=== PATIENT | female | born 1935 | race Caucasian/White ===

== ENCOUNTER → 2021-01-12 11:53 | Outpatient (CLI) | payer MEDICARE, SELFPAY ==
[2021-01-12 19:21] LABS: HEMOLYSIS < 15 (0-50); Iron 68 ug/dL (37-170)
[2021-01-12 19:31] LABS: Alanine Aminotransferase 19 IU/L (<35); Albumin 3.8 g/dL (3.5-5.0); Albumin Globulin Ratio 1.4 (1.0-2.8); Alkaline Phosphatase 71 U/L (38-126); Aspartate Aminotransferase 30 IU/L (14-36); BUN Creatinine Ratio 22.4 (6-22); Bilirubin Total 0.5 mg/dL (0.2-1.3); Blood Urea Nitrogen 24 mg/dL (7-17); Calcium 9.9 mg/dL (8.4-10.2); Carbon Dioxide 26 mmol/L (22-32); Chloride 103 mmol/L (98-107); Estimated Glomerular Filt Rate 48.6 mL/min (>60); Globulin 2.8 g/dL (1.7-4.1); Glucose 93 mg/dL (80-110); HEMOLYSIS < 15 (0-50); Potassium 4.6 mmol/L (3.4-5.1); Sodium 136 mmol/L (137-145); Total Protein 6.6 g/dL (6.3-8.2)
[2021-01-12 19:33] LABS: Percent Iron Saturation 24 % (15-50); Total Iron Binding Capacity 286 ug/dL (265-497); Transferrin 247 mg/dL (206-381)
[2021-01-12 19:39] LABS: Add Manual Diff / Slide Review NO; Basophils Absolute Auto 100 /uL (0-100); Basophils Percent Auto 2.2 % (0-2); Eosinophils Absolute Auto 300 /uL (0-450); Eosinophils Percent Auto 5.7 % (2-4); Hematocrit 34.9 % (36-46); Hemoglobin 11.5 g/dL (12.0-16.0); Lymphocytes Absolute Auto 800 /uL (1100-4500); Lymphocytes Percent Auto 13.7 % (25-40); Mean Corpuscular HGB Conc 32.9 % (30-36); Mean Corpuscular Hemoglobin 29.4 PG (26-34); Mean Corpuscular Volume 89.4 fL (80-100); Monocytes Absolute Auto 700 /uL (0-900); Monocytes Percent Auto 13.5 % (3-14); Neutrophils Absolute Auto 3600 /uL (1500-7000); Neutrophils Percent Auto 64.9 % (50-75); Platelet Count 249 X10^3/uL (150-400); Red Cell Distribution Width 19.2 % (11.6-14.8); White Blood Cell Count 5.5 X10^3/uL (4.5-11.0)
[2021-01-12 19:54] LABS: TSH w/ Reflex to FT4 4.08 uIU/mL (0.47-4.68)
[2021-01-12 19:58] LABS: Reticulocyte Count, Percent 1.3 % (1.06-2.63)
[2021-01-12 20:04] LABS: Ferritin 29 ng/mL (11-264)
[2021-01-12 20:34] LABS: Folate > 20.0 ng/mL (2.76-20.0); Vitamin B12 584 pg/mL (239-931)
== END ==
PROVIDERS: Family Provider Family Medicine; PCP Family Medicine; Referring Provider Family Medicine; Visit Provider Family Medicine
DX: D64.9 Anemia, unspecified (principal); E03.9 Hypothyroidism, unspecified; N18.9 Chronic kidney disease, unspecified; I10 Essential (primary) hypertension
CPT/HCPCS: 80053; 82607; 82728; 82746; 83540; 83550; 84443; 85025; 85045

== ENCOUNTER → 2021-01-24 12:13 | Outpatient (CLI) | payer MEDICARE, SELFPAY ==
[2021-01-24 19:35] LABS: Add Manual Diff / Slide Review NO; Basophils Absolute Auto 100 /uL (0-100); Basophils Percent Auto 1.2 % (0-2); Eosinophils Absolute Auto 200 /uL (0-450); Eosinophils Percent Auto 3.2 % (2-4); Hematocrit 38.3 % (36-46); Hemoglobin 12.2 g/dL (12.0-16.0); Lymphocytes Absolute Auto 800 /uL (1100-4500); Lymphocytes Percent Auto 11.1 % (25-40); Mean Corpuscular HGB Conc 31.9 % (30-36); Mean Corpuscular Hemoglobin 28.9 PG (26-34); Mean Corpuscular Volume 90.4 fL (80-100); Monocytes Absolute Auto 800 /uL (0-900); Monocytes Percent Auto 10.3 % (3-14); Neutrophils Absolute Auto 5600 /uL (1500-7000); Neutrophils Percent Auto 74.2 % (50-75); Platelet Count 316 X10^3/uL (150-400); Red Blood Cell Count 4.23 X10^6/uL (4.0-5.2); Red Cell Distribution Width 18.9 % (11.6-14.8); White Blood Cell Count 7.6 X10^3/uL (4.5-11.0)
[2021-01-24 19:45] LABS: Alanine Aminotransferase 36 IU/L (<35); Albumin Globulin Ratio 1.5 (1.0-2.8); Alkaline Phosphatase 71 U/L (38-126); Aspartate Aminotransferase 41 IU/L (14-36); BUN Creatinine Ratio 20.5 (6-22); Bilirubin Total 0.4 mg/dL (0.2-1.3); Blood Urea Nitrogen 23 mg/dL (7-17); Calcium 9.9 mg/dL (8.4-10.2); Carbon Dioxide 29 mmol/L (22-32); Chloride 102 mmol/L (98-107); Estimated Glomerular Filt Rate 46.1 mL/min (>60); Globulin 2.7 g/dL (1.7-4.1); Glucose 92 mg/dL (80-110); HEMOLYSIS < 15 (0-50); Potassium 5.1 mmol/L (3.4-5.1); Sodium 135 mmol/L (137-145); Total Protein 6.7 g/dL (6.3-8.2)
== END ==
PROVIDERS: Family Provider Family Medicine; PCP Family Medicine; Referring Provider Physician Assistant; Visit Provider Physician Assistant
DX: D64.9 Anemia, unspecified (principal); E03.9 Hypothyroidism, unspecified; Z86.73 Personal history of transient ischemic attack (TIA), and cerebral infarction without residual deficits
CPT/HCPCS: 80053; 85018; 85025

== ENCOUNTER → 2021-06-27 10:24 | Outpatient (CLI) | payer MEDICARE, SELFPAY ==
[2021-06-27 20:02] LABS: Add Manual Diff / Slide Review NO; Basophils Absolute Auto 100 /uL (0-100); Basophils Percent Auto 1.3 % (0-2); Eosinophils Absolute Auto 400 /uL (0-450); Hematocrit 29.6 % (36-46); Hemoglobin 9.4 g/dL (12.0-16.0); Lymphocytes Absolute Auto 500 /uL (1100-4500); Lymphocytes Percent Auto 9.6 % (25-40); Mean Corpuscular HGB Conc 31.8 % (30-36); Mean Corpuscular Hemoglobin 29.7 PG (26-34); Mean Corpuscular Volume 93.3 fL (80-100); Monocytes Absolute Auto 700 /uL (0-900); Monocytes Percent Auto 12.9 % (3-14); Neutrophils Absolute Auto 4000 /uL (1500-7000); Neutrophils Percent Auto 69.2 % (50-75); Platelet Count 337 X10^3/uL (150-400); Red Blood Cell Count 3.17 X10^6/uL (4.0-5.2); Red Cell Distribution Width 20.1 % (11.6-14.8); White Blood Cell Count 5.7 X10^3/uL (4.5-11.0)
[2021-06-27 20:31] LABS: Anisocytosis 2+
--- NOTE | 2021-06-28 17:56 | CM.SWNOTE ---
PEST CONTROL OPERATOR Note: Received community call from [facility] by Dr. Rincon ph# [phone]. PEST CONTROL OPERATOR returned call to Dr. Rincon at approximately 11:00AM today. Provider reports that this 86yr old female was discharged from [facility] about 1 week ago after GI bleed. Prior to GI bleed patient underwent hip repair at [facility]. PEST CONTROL OPERATOR unable to access records from [facility] or [facility]. Provider and ASSISTANT BOYS TRACK COACH/Liz requesting assistance with placement of this patient that continues to need rehabilitation for hip repair and cannot manage at home. Per provider patient previously at [facility]? PEST CONTROL OPERATOR left vm with admit at [facility] to obtain more information? After not receiving call back from [facility] placed call to Marleni at [facility] to review for possible rehab admit from outpatient clinic. Patient has met Medicare requirement and should not need to be hospitalized to go to SNF for rehab. Inpatient acute care PEST CONTROL OPERATOR/Elsie Morris agreed to assist office with SNF placement. Spoke with Marleni at [facility] after she reviewed chart in [facility]. November in agreement to discuss with Dr. Rincon office and accept tomorrow if all arrangements and paperwork can be completed. Spoke again this afternoon with ASSISTANT BOYS TRACK COACH/Liz at clinic on [address], she confirms that all paperwork completed and patient tested today for COVID. Current plan is for patient to be brought over from [facility] tomorrow by family/friends to be admitted to [facility] for continued rehab. P: [facility] on 06-29-21. Approximately 60 minutes spent on coordination of d/c plan from clinic to SNF. SCOTT Watt
== END ==
PROVIDERS: Family Provider Family Medicine; PCP Family Medicine; Referring Provider Physician Assistant; Visit Provider Physician Assistant
DX: D50.9 Iron deficiency anemia, unspecified (principal); K92.2 Gastrointestinal hemorrhage, unspecified
CPT/HCPCS: 85025

== ENCOUNTER → 2021-07-12 14:58 | Outpatient (CLI) | payer MEDICARE, OTHER, SELFPAY ==
--- NOTE | 2021-07-12 | DI.RAD.S_ITS ---
PROCEDURE: XR HIP W PEL IF DONE LT 2V INDICATIONS: Left hip replacement. TECHNIQUE: AP pelvis and lateral view of the left hip acquired. COMPARISON: [facility] ([facility] CR, XR HIP W PEL IF DONE LT 2V, 06/26/2021, 15:12. FINDINGS: Bones: There is left hip arthroplasty, with prosthesis components in expected positions. Healing or healed superior and inferior pubic remote fractures are noted. 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 Soft tissues: Overlying postoperative changes are noted. Vascular densities consistent with atherosclerosis. IMPRESSION: 1. Left hip arthroplasty in expected position. 2. Healing or healed left obturator ring fractures. Dictated by: Stephane Dove M.D. on 07/13/2021 at 7:53 Approved by: Stephane Dove M.D. on 07/13/2021 at 7:56
== END ==
PROVIDERS: Family Provider Family Medicine; PCP Family Medicine; Referring Provider Orthopaedic Surgery Orthopaedic Trauma; Visit Provider Orthopaedic Surgery Orthopaedic Trauma
DX: M16.11 Unilateral primary osteoarthritis, right hip (principal); M46.1 Sacroiliitis, not elsewhere classified; Z96.642 Presence of left artificial hip joint
CPT/HCPCS: 73502

== ENCOUNTER 2021-07-24 12:02 | Emergency (ER) | payer MEDICARE, OTHER, SELFPAY ==
[2021-07-24] VITALS (51 sets, daily range): BP systolic 138–187; BP diastolic 55–79; PULSE 57–79; RESP 12–33; TEMP 36.2–36.6; O2SAT 92–100; BMI 20.3
--- NOTE | 2021-07-24 12:44 | ED.NAVMDI ---
HPI - Nausea/Vomiting/Diarrhea <Gustavo Nickerson DO - Last Filed: 07/25/21 07:03> General Chief complaint: Nausea/Vomiting/Diarrhea Stated complaint: Failure to thrive Time Seen by Provider: 07/24/21 12:22 Source: patient and EMS Mode of arrival: EMS Limitations: altered mental status History of Present Illness HPI Narrative: 86-year-old female. Does have a PLOST form at bedside which does state DNR with limited interventions. Sent by her living facility by EMS for evaluation of failure to thrive and COVID positive and potential GI bleed. Patient has had GI bleed in the past. Per report she is tested positive for COVID within the past 5 days. Patient states that she knows she is in the hospital but is obviously confused about why she is here. She has no reported symptoms. She thinks that she did not have any diarrhea earlier today however per EMS report she apparently had a bowel movement in the nursing facility just prior to their involvement in the case. Related Data Previous Rx's Medication Instructions Recorded lisinopril 20 mg tablet 20 mg PO QAM #90 tab 03/06/16 amlodipine 5 mg tablet (Norvasc) 5 mg PO QDAY #90 tab 03/07/16 levothyroxine 88 mcg tablet 88 mcg PO QAM #90 tab 11/27/16 spironolactone 25 mg tablet 25 mg PO QAM #30 tab 01/07/17 atorvastatin 20 mg tablet (Lipitor) 20 mg PO HS #90 tab 12/20/20 clopidogrel 75 mg tablet 75 mg PO DAILY #30 tab 04/25/21 sertraline 50 mg tablet 75 mg PO QDAY #90 tab 05/19/21 carvedilol 6.25 mg tablet (Coreg) 6.25 mg PO BID #120 tab 06/21/21 Allergies Allergy/AdvReac Type Severity Reaction Status Date / Time No Known Drug Allergies Allergy Verified 07/24/21 12:38 Review of Systems <DO Veronica Lala Last Filed: 07/25/21 07:03> Review of Systems Narrative: Potentially limited given her altered mental status Constitutional Constitutional: Denies headache(s) ENT Ears, Nose, Mouth, and Throat: Denies headache(s) Cardiovascular Cardiovascular: Denies chest pain and Denies dyspnea Respiratory Respiratory: Denies cough and Denies dyspnea Gastrointestinal Gastrointestinal: Denies abdominal pain and Denies change in bowel habits Neurologic Neurologic: Denies headache(s) Hematologic/Lymphatic On Anticoagulants: No Patient History <DO Veronica Lala Last Filed: 07/25/21 07:03> Medical History (Updated 07/25/21 @ 01:19 by Cy Lopez DO) Anemia Essential hypertension (11/21/15) Failure to thrive Hx of completed stroke Ischemic dilated cardiomyopathy Social History Smoking Status: Former smoker Smoking Status: Former smoker Substance Use Type: does not use Exam <DO Veronica Lala Last Filed: 07/25/21 07:03> Initial Vital Signs Initial Vital Signs: Vital Signs Temperature 97.2 F L 07/24/21 12:05 Pulse Rate 57 L 07/24/21 12:05 Respiratory Rate 12 07/24/21 12:05 Blood Pressure 147/67 H 07/24/21 12:05 Pulse Oximetry 100 07/24/21 12:05 HENMT Head: normal to inspection and normocephalic Resp Effort & Inspection: normal respiratory effort Cardio Rate: regular rate GI Inspection: normal to inspection Palpation: soft and No tender Skin General: no rashes or lesions noted Neuro General: patient alert, patient awake and moves all extremities Extrem General: normal to inspection and capillary refill normal Psych Appearance: grossly normal and well kempt <Cy Lopez DO - Last Filed: 07/25/21 02:55> Initial Vital Signs Initial Vital Signs: Vital Signs Temperature 97.2 F L 07/24/21 12:05 Pulse Rate 57 L 07/24/21 12:05 Respiratory Rate 12 07/24/21 12:05 Blood Pressure 147/67 H 07/24/21 12:05 Pulse Oximetry 100 07/24/21 12:05 Scores <DO Veronica Lala Last Filed: 07/25/21 07:03> GCS [place] coma scale eye opening: Spontaneous [place] coma scale verbal response: Confused [place] coma scale motor response: Obey commands Anayeli coma scale total score: 14 <DO Veronica Meléndez Last Filed: 07/25/21 02:55> GCS [place] coma scale total score: 14 Course <DO Veronica Lala Last Filed: 07/25/21 07:03> Orders Ordered: ED Orders 07/25/21 00:20 Hemoglobin and Hematocrit Stat Vital Signs Vital signs: Vital Signs - 8 hr 07/24/21 23:15 07/24/21 23:30 07/24/21 23:45 Pulse Rate 62 63 62 Respiratory Rate 22 20 23 Blood Pressure Pulse Oximetry 99 97 98 07/24/21 23:49 07/25/21 00:00 07/25/21 00:15 Pulse Rate 62 62 88 Respiratory Rate 31 H 25 H 28 H Blood Pressure 180/75 H Pulse Oximetry 98 97 97 07/25/21 00:30 07/25/21 00:45 07/25/21 01:00 Pulse Rate 60 62 60 Respiratory Rate 21 18 16 Blood Pressure Pulse Oximetry 99 93 97 07/25/21 01:15 07/25/21 01:30 07/25/21 01:45 Pulse Rate 59 L 66 62 Respiratory Rate 17 25 H 19 Blood Pressure Pulse Oximetry 97 96 98 07/25/21 02:00 07/25/21 02:15 07/25/21 02:30 Pulse Rate 59 L 63 62 Respiratory Rate 13 21 17 Blood Pressure Pulse Oximetry 98 98 98 07/25/21 02:45 Pulse Rate 61 Respiratory Rate 17 Blood Pressure 180/73 H Pulse Oximetry 97 <Cy Lopez, DO - Last Filed: 07/25/21 02:55> Orders Ordered: ED Orders 07/25/21 00:20 Hemoglobin and Hematocrit Stat Vital Signs Vital signs: Vital Signs - 8 hr 07/24/21 23:15 07/24/21 23:30 07/24/21 23:45 Pulse Rate 62 63 62 Respiratory Rate 20 23 Blood Pressure Pulse Oximetry 99 97 98 07/24/21 23:49 07/25/21 00:00 07/25/21 00:15 Pulse Rate 62 62 88 Respiratory Rate 31 H 25 H 28 H Blood Pressure 180/75 H Pulse Oximetry 98 97 97 07/25/21 00:30 07/25/21 00:45 07/25/21 01:00 Pulse Rate 60 62 60 Respiratory Rate 21 18 16 Blood Pressure Pulse Oximetry 99 93 97 07/25/21 01:15 07/25/21 01:30 07/25/21 01:45 Pulse Rate 59 L 66 62 Respiratory Rate 17 25 H 19 Blood Pressure Pulse Oximetry 97 96 98 07/25/21 02:00 07/25/21 02:15 07/25/21 02:30 Pulse Rate 59 L 63 62 Respiratory Rate 13 21 17 Blood Pressure Pulse Oximetry 98 98 98 07/25/21 02:45 Pulse Rate 61 Respiratory Rate 17 Blood Pressure 180/73 H Pulse Oximetry 97 MDM - Nausea/Vomiting/Diarrhea <Gustavo NickersonDO - Last Filed: 07/25/21 07:03> Lab Data Attestation: I reviewed the patient's lab results. Result diagrams: 07/25/21 00:20 07/24/21 12:20 Labs: Lab Results 07/24/21 07/24/21 07/24/21 Range/Units 12:20 12:20 12:20 WBC 11.1 H (4.5-11.0) X10^3/uL RBC 2.41 L (4.0-5.2) X10^6/uL Hgb 6.8 L* (12.0-16.0) g/dL Hct 21.8 L (36-46) % MCV 90.3 (80-100) fL MCH 28.1 (26-34) PG MCHC 31.1 (30-36) % RDW 18.7 H (11.6-14.8) % Plt Count 384 (150-400) X10^3/uL Neut % (Auto) 81.2 H (50-75) % Lymph % (Auto) 5.5 L (25-40) % [place] % (Auto) 10.1 (3-14) % Eos % (Auto) 2.7 (2-4) % Baso % (Auto) 0.5 (0-2) % Neut # (Auto) 9000 H (8204-5888) /uL Lymph # (Auto) 600 L (4428-8675) /uL [place] # (Auto) 1100 H (0-900) /uL Eos # (Auto) 300 (0-450) /uL Baso # (Auto) 100 (0-100) /uL Sodium 135 L (137-145) mmol/L Potassium 4.5 (3.4-5.1) mmol/L Chloride 105 (98-107) mmol/L Carbon Dioxide 23 (22-32) mmol/L BUN 42 H (7-17) mg/dL Creatinine 1.66 H (0.52-1.04) mg/dL Estimated GFR 29.2 L (>60) mL/min BUN/Creatinine Ratio 25.3 H (6-22) Glucose 105 (80-110) mg/dL Lactate 2.4 H (0.7-2.1) mmol/L Calcium 9.2 (8.4-10.2) mg/dL Total Bilirubin 0.3 (0.2-1.3) mg/dL AST 24 (14-36) IU/L ALT 15 (<35) IU/L Alkaline Phosphatase 65 (38-126) U/L Total Creatine Kinase (30-135) U/L CK-MB (CK-2) CK-MB (CK-2) Rel Index Troponin I (0.01-0.034) ng/mL Total Protein 6.1 L (6.3-8.2) g/dL Albumin 3.4 L (3.5-5.0) g/dL Globulin 2.7 (1.7-4.1) g/dL Albumin/Globulin Ratio 1.3 (1.0-2.8) Lipase 252 (23-300) U/L Blood Type Antibody Screen Crossmatch 07/24/21 07/24/21 07/24/21 Range/Units 12:20 12:20 14:50 WBC (4.5-11.0) X10^3/uL RBC (4.0-5.2) X10^6/uL Hgb (12.0-16.0) g/dL Hct (36-46) % MCV (80-100) fL MCH (26-34) PG MCHC (30-36) % RDW (11.6-14.8) % Plt Count (150-400) X10^3/uL Neut % (Auto) (50-75) % Lymph % (Auto) (25-40) % [place] % (Auto) (3-14) % Eos % (Auto) (2-4) % Baso % (Auto) (0-2) % Neut # (Auto) (4396-8264) /uL Lymph # (Auto) (9781-9204) /uL [place] # (Auto) (0-900) /uL Eos # (Auto) (0-450) /uL Baso # (Auto) (0-100) /uL Sodium (137-145) mmol/L Potassium (3.4-5.1) mmol/L Chloride (98-107) mmol/L Carbon Dioxide (22-32) mmol/L BUN (7-17) mg/dL Creatinine (0.52-1.04) mg/dL Estimated GFR (>60) mL/min BUN/Creatinine Ratio (6-22) Glucose (80-110) mg/dL Lactate 0.9 (0.7-2.1) mmol/L Calcium (8.4-10.2) mg/dL Total Bilirubin (0.2-1.3) mg/dL AST (14-36) IU/L ALT (<35) IU/L Alkaline Phosphatase (38-126) U/L Total Creatine Kinase 33 (30-135) U/L CK-MB (CK-2) TNP CK-MB (CK-2) Rel Index TNP Troponin I < 0.012 (0.01-0.034) ng/mL Total Protein (6.3-8.2) g/dL Albumin (3.5-5.0) g/dL Globulin (1.7-4.1) g/dL Albumin/Globulin Ratio (1.0-2.8) Lipase (23-300) U/L Blood Type O Positive Antibody Screen Negative Crossmatch See Detail 07/24/21 07/25/21 Range/Units 19:02 00:20 WBC (4.5-11.0) X10^3/uL RBC (4.0-5.2) X10^6/uL Hgb 7.7 L 9.6 L (12.0-16.0) g/dL Hct 23.4 L 29.9 L (36-46) % MCV (80-100) fL MCH (26-34) PG MCHC (30-36) % RDW (11.6-14.8) % Plt Count (150-400) X10^3/uL Neut % (Auto) (50-75) % Lymph % (Auto) (25-40) % [place] % (Auto) (3-14) % Eos % (Auto) (2-4) % Baso % (Auto) (0-2) % Neut # (Auto) (4517-5021) /uL Lymph # (Auto) (0927-1083) /uL [place] # (Auto) (0-900) /uL Eos # (Auto) (0-450) /uL Baso # (Auto) (0-100) /uL Sodium (137-145) mmol/L Potassium (3.4-5.1) mmol/L Chloride (98-107) mmol/L Carbon Dioxide (22-32) mmol/L BUN (7-17) mg/dL Creatinine (0.52-1.04) mg/dL Estimated GFR (>60) mL/min BUN/Creatinine Ratio (6-22) Glucose (80-110) mg/dL Lactate (0.7-2.1) mmol/L Calcium (8.4-10.2) mg/dL Total Bilirubin (0.2-1.3) mg/dL AST (14-36) IU/L ALT (<35) IU/L Alkaline Phosphatase (38-126) U/L Total Creatine Kinase (30-135) U/L CK-MB (CK-2) CK-MB (CK-2) Rel Index Troponin I (0.01-0.034) ng/mL Total Protein (6.3-8.2) g/dL Albumin (3.5-5.0) g/dL Globulin (1.7-4.1) g/dL Albumin/Globulin Ratio (1.0-2.8) Lipase (23-300) U/L Blood Type Antibody Screen Crossmatch ABG Data ABG results: Patient arrived and knows she is in the hospital but seems to be confused about why she is here. She has no stated complaints. According to some medical records appears that she has had anemia in the past and there was concern about a GI source. I did discuss the case with the patient's [id number] who states that she did recently have a colonoscopy and upper endoscopy without a specific diagnosis. The power of commercial loan reviewer did state that the patient be okay with the blood transfusion but did state that she would not want extensive measures done to prolong her life. 1 unit packed red blood cells administered and a repeat H&H still shows anemia given her clinical presentation and trajectory I do feel that a 2nd unit of blood is warranted. I did discuss admission to the hospital the [id number] however currently the plan will be is to transfuse her with blood in discharged back to her facility. She does have an appointment with the GI provider later this week. Care turned over to Dr. Lopez to follow-up after 2nd unit of packed red blood cells and disposition. ECG Data Attestation: I personally reviewed and interpreted this ECG as follows: Prior ECG tracings: available for review Interpretation: Sinus bradycardia Ventricular rate of 59 Left axis deviation LVH Normal QRS Nonspecific ST T wave changes <Cy Lopez, DO - Last Filed: 07/25/21 02:55> Lab Data Labs: Lab Results 07/24/21 07/24/21 07/24/21 Range/Units 12:20 12:20 12:20 WBC 11.1 H (4.5-11.0) X10^3/uL RBC 2.41 L (4.0-5.2) X10^6/uL Hgb 6.8 L* (12.0-16.0) g/dL Hct 21.8 L (36-46) % MCV 90.3 (80-100) fL MCH 28.1 (26-34) PG MCHC 31.1 (30-36) % RDW 18.7 H (11.6-14.8) % Plt Count 384 (150-400) X10^3/uL Neut % (Auto) 81.2 H (50-75) % Lymph % (Auto) 5.5 L (25-40) % [place] % (Auto) 10.1 (3-14) % Eos % (Auto) 2.7 (2-4) % Baso % (Auto) 0.5 (0-2) % Neut # (Auto) 9000 H (1296-6566) /uL Lymph # (Auto) 600 L (8347-5693) /uL [place] # (Auto) 1100 H (0-900) /uL Eos # (Auto) 300 (0-450) /uL Baso # (Auto) 100 (0-100) /uL Sodium 135 L (137-145) mmol/L Potassium 4.5 (3.4-5.1) mmol/L Chloride 105 (98-107) mmol/L Carbon Dioxide 23 (22-32) mmol/L BUN 42 H (7-17) mg/dL Creatinine 1.66 H (0.52-1.04) mg/dL Estimated GFR 29.2 L (>60) mL/min BUN/Creatinine Ratio 25.3 H (6-22) Glucose 105 (80-110) mg/dL Lactate 2.4 H (0.7-2.1) mmol/L Calcium 9.2 (8.4-10.2) mg/dL Total Bilirubin 0.3 (0.2-1.3) mg/dL AST 24 (14-36) IU/L ALT 15 (<35) IU/L Alkaline Phosphatase 65 (38-126) U/L Total Creatine Kinase (30-135) U/L CK-MB (CK-2) CK-MB (CK-2) Rel Index Troponin I (0.01-0.034) ng/mL Total Protein 6.1 L (6.3-8.2) g/dL Albumin 3.4 L (3.5-5.0) g/dL Globulin 2.7 (1.7-4.1) g/dL Albumin/Globulin Ratio 1.3 (1.0-2.8) Lipase 252 (23-300) U/L Blood Type Antibody Screen Crossmatch 07/24/21 07/24/21 07/24/21 Range/Units 12:20 12:20 14:50 WBC (4.5-11.0) X10^3/uL RBC (4.0-5.2) X10^6/uL Hgb (12.0-16.0) g/dL Hct (36-46) % MCV (80-100) fL MCH (26-34) PG MCHC (30-36) % RDW (11.6-14.8) % Plt Count (150-400) X10^3/uL Neut % (Auto) (50-75) % Lymph % (Auto) (25-40) % [place] % (Auto) (3-14) % Eos % (Auto) (2-4) % Baso % (Auto) (0-2) % Neut # (Auto) (1373-7651) /uL Lymph # (Auto) (1564-1810) /uL [place] # (Auto) (0-900) /uL Eos # (Auto) (0-450) /uL Baso # (Auto) (0-100) /uL Sodium (137-145) mmol/L Potassium (3.4-5.1) mmol/L Chloride (98-107) mmol/L Carbon Dioxide (22-32) mmol/L BUN (7-17) mg/dL Creatinine (0.52-1.04) mg/dL Estimated GFR (>60) mL/min BUN/Creatinine Ratio (6-22) Glucose (80-110) mg/dL Lactate 0.9 (0.7-2.1) mmol/L Calcium (8.4-10.2) mg/dL Total Bilirubin (0.2-1.3) mg/dL AST (14-36) IU/L ALT (<35) IU/L Alkaline Phosphatase (38-126) U/L Total Creatine Kinase 33 (30-135) U/L CK-MB (CK-2) TNP CK-MB (CK-2) Rel Index TNP Troponin I < 0.012 (0.01-0.034) ng/mL Total Protein (6.3-8.2) g/dL Albumin (3.5-5.0) g/dL Globulin (1.7-4.1) g/dL Albumin/Globulin Ratio (1.0-2.8) Lipase (23-300) U/L Blood Type O Positive Antibody Screen Negative Crossmatch See Detail 07/24/21 07/25/21 Range/Units 19:02 00:20 WBC (4.5-11.0) X10^3/uL RBC (4.0-5.2) X10^6/uL Hgb 7.7 L 9.6 L (12.0-16.0) g/dL Hct 23.4 L 29.9 L (36-46) % MCV (80-100) fL MCH (26-34) PG MCHC (30-36) % RDW (11.6-14.8) % Plt Count (150-400) X10^3/uL Neut % (Auto) (50-75) % Lymph % (Auto) (25-40) % [place] % (Auto) (3-14) % Eos % (Auto) (2-4) % Baso % (Auto) (0-2) % Neut # (Auto) (3756-8545) /uL Lymph # (Auto) (1440-6794) /uL [place] # (Auto) (0-900) /uL Eos # (Auto) (0-450) /uL Baso # (Auto) (0-100) /uL Sodium (137-145) mmol/L Potassium (3.4-5.1) mmol/L Chloride (98-107) mmol/L Carbon Dioxide (22-32) mmol/L BUN (7-17) mg/dL Creatinine (0.52-1.04) mg/dL Estimated GFR (>60) mL/min BUN/Creatinine Ratio (6-22) Glucose (80-110) mg/dL Lactate (0.7-2.1) mmol/L Calcium (8.4-10.2) mg/dL Total Bilirubin (0.2-1.3) mg/dL AST (14-36) IU/L ALT (<35) IU/L Alkaline Phosphatase (38-126) U/L Total Creatine Kinase (30-135) U/L CK-MB (CK-2) CK-MB (CK-2) Rel Index Troponin I (0.01-0.034) ng/mL Total Protein (6.3-8.2) g/dL Albumin (3.5-5.0) g/dL Globulin (1.7-4.1) g/dL Albumin/Globulin Ratio (1.0-2.8) Lipase (23-300) U/L Blood Type Antibody Screen Crossmatch ABG Data ABG results: Patient arrived and knows she is in the hospital but seems to be confused about why she is here. She has no stated complaints. According to some medical records appears that she has had anemia in the past and there was concern about a GI source. I did discuss the case with the patient's [id number] who states that she did recently have a colonoscopy and upper endoscopy without a specific diagnosis. The power of commercial loan reviewer did state that the patient be okay with the blood transfusion but did state that she would not want extensive measures done to prolong her life. 1 unit packed red blood cells administered and a repeat H&H still shows anemia given her clinical presentation and trajectory I do feel that a 2nd unit of blood is warranted. I did discuss admission to the hospital the [id number] however currently the plan will be is to transfuse her with blood in discharged back to her facility. She does have an appointment with the GI provider later this week. Care turned over to Dr. Lopez to follow-up after 2nd unit of packed red blood cells and disposition. 1900 - ([place]) patient received in sign-out from Dr. Nickerson. I performed a brief history and physical, patient is largely at baseline. Second unit of packed red cells is pending, upon completion repeat H&H to be performed. Have reviewed clinical course up until this point. Nothing significant to add. Upon completion of 2nd unit H and H demonstrates significant improvement in H& H. Hemodynamically she is stable and at her baseline. Discharge Plan Departure Patient Disposition: Home Clinical Impression: Anemia, Adult failure to thrive Activity Restrictions/Additional Instructions: *You have been diagnosed with [ Anemia with transfusions at have replaced her blood count back to near normal] *What to do: *Please continue to take your regular medications as directed. [ ] New medication prescriptions sent to your pharmacy: [ ] [ ] New medication written as a paper prescription [ x] No new medications given *Please follow up with your primary care provider in 2-3 days, call for an appointment. Let them know you were seen in the Emergency Department and that we ask that you be seen in follow up. We will electronically transmit a record of today's note if your PCP is in our system *If you do not have a primary care provider please contact [facility] line at [phone]. They will ask some questions about your medical history and help get you set up with a doctor in the community. *Return to Emergency Department if you should have any new, worsening or concerning symptoms, such as [fever greater than 101 F, shaking chills, worsening pain, persistent vomiting or other bothersome symptoms] Prescriptions: No Action lisinopril 20 MG tablet 20 mg PO QAM Qty: 90 3RF amlodipine [Norvasc] 5 MG tablet 5 mg PO QDAY Qty: 90 3RF levothyroxine 88 MCG tablet 88 mcg PO QAM Qty: 90 3RF spironolactone 25 MG tablet 25 mg PO QAM Qty: 30 2RF atorvastatin [Lipitor] 20 mg tablet 20 mg PO HS Qty: 90 0RF clopidogrel 75 mg tablet 75 mg PO DAILY Qty: 30 2RF sertraline 50 mg tablet 75 mg PO QDAY Qty: 90 1RF carvedilol [Coreg] 6.25 mg tablet 6.25 mg PO BID Qty: 120 1RF Referrals: Nickolas Rosado, DO [Primary Care Provider] -
[2021-07-24 13:03] LABS: Add Manual Diff / Slide Review NO; Basophils Absolute Auto 100 /uL (0-100); Basophils Percent Auto 0.5 % (0-2); Eosinophils Absolute Auto 300 /uL (0-450); Eosinophils Percent Auto 2.7 % (2-4); Hematocrit 21.8 % (36-46); Lymphocytes Absolute Auto 600 /uL (1100-4500); Lymphocytes Percent Auto 5.5 % (25-40); Mean Corpuscular HGB Conc 31.1 % (30-36); Mean Corpuscular Hemoglobin 28.1 PG (26-34); Mean Corpuscular Volume 90.3 fL (80-100); Monocytes Absolute Auto 1100 /uL (0-900); Monocytes Percent Auto 10.1 % (3-14); Neutrophils Absolute Auto 9000 /uL (1500-7000); Neutrophils Percent Auto 81.2 % (50-75); Platelet Count 384 X10^3/uL (150-400); Red Blood Cell Count 2.41 X10^6/uL (4.0-5.2); Red Cell Distribution Width 18.7 % (11.6-14.8); White Blood Cell Count 11.1 X10^3/uL (4.5-11.0)
[2021-07-24 13:05] LABS: Hemoglobin 6.8 g/dL (12.0-16.0)
[2021-07-24 13:34] LABS: Creatine Kinase 33 U/L (30-135)
[2021-07-24 13:37] LABS: Alanine Aminotransferase 15 IU/L (<35); Albumin 3.4 g/dL (3.5-5.0); Albumin Globulin Ratio 1.3 (1.0-2.8); Alkaline Phosphatase 65 U/L (38-126); Aspartate Aminotransferase 24 IU/L (14-36); BUN Creatinine Ratio 25.3 (6-22); Bilirubin Total 0.3 mg/dL (0.2-1.3); Blood Urea Nitrogen 42 mg/dL (7-17); Calcium 9.2 mg/dL (8.4-10.2); Carbon Dioxide 23 mmol/L (22-32); Chloride 105 mmol/L (98-107); Estimated Glomerular Filt Rate 29.2 mL/min (>60); Globulin 2.7 g/dL (1.7-4.1); Glucose 105 mg/dL (80-110); HEMOLYSIS 16 (0-50); Lactate (Lactic Acid) 2.4 mmol/L (0.7-2.1); Lipase 252 U/L (23-300); Potassium 4.5 mmol/L (3.4-5.1); Sodium 135 mmol/L (137-145); Total Protein 6.1 g/dL (6.3-8.2)
[2021-07-24 13:46] LABS: Troponin I < 0.012 ng/mL (0.01-0.034)
[2021-07-24 14:40] LABS: Reflexed Lactate in 2 Hours Y
[2021-07-24 15:07] LABS: Lactate 2HR (Lactic Acid Rflx) 0.9 mmol/L (0.7-2.1)
[2021-07-24 19:07] LABS: Hematocrit 23.4 % (36-46); Hemoglobin 7.7 g/dL (12.0-16.0)
--- NOTE | 2021-07-24 20:34 | PC.NURSE ---
no transfusion reaction sxs noted after first 15 mins of infusion for 2nd unit of PBRCs
[2021-07-25] VITALS (12 sets, daily range): BP systolic 180; BP diastolic 73; PULSE 59–88; RESP 13–28; O2SAT 93–99
[2021-07-25 00:34] LABS: Hematocrit 29.9 % (36-46); Hemoglobin 9.6 g/dL (12.0-16.0)
== END 2021-07-25 03:27 | disposition home or self-care (01) ==
PROVIDERS: Emergency Medicine; Emergency Provider Emergency Medicine; Family Provider Family Medicine; PCP Family Medicine
DX: D64.9 Anemia, unspecified (principal); R62.7 Adult failure to thrive; Z66 Do not resuscitate; Z87.891 Personal history of nicotine dependence
CPT/HCPCS: 36415; 36430; 80053; 82550; 83605; 83690; 84484; 85014; 85018; 85025; 86850; 86900; 86901; 87040; 93005; 99284; P9016

== ENCOUNTER 2021-07-30 16:11 | Emergency (ER) | payer MEDICARE, OTHER, SELFPAY ==
[2021-07-30] VITALS (7 sets, daily range): BP systolic 136–165; BP diastolic 59–70; PULSE 65–67; RESP 12–16; TEMP 36.9; O2SAT 94–96
[2021-07-30 16:42] LABS: Add Manual Diff / Slide Review NO; Basophils Absolute Auto 100 /uL (0-100); Basophils Percent Auto 0.8 % (0-2); Eosinophils Absolute Auto 300 /uL (0-450); Eosinophils Percent Auto 3.2 % (2-4); Hematocrit 31.5 % (36-46); Hemoglobin 10.3 g/dL (12.0-16.0); Lymphocytes Absolute Auto 600 /uL (1100-4500); Mean Corpuscular HGB Conc 32.8 % (30-36); Mean Corpuscular Hemoglobin 29.3 PG (26-34); Mean Corpuscular Volume 89.2 fL (80-100); Monocytes Absolute Auto 1400 /uL (0-900); Monocytes Percent Auto 14.4 % (3-14); Neutrophils Absolute Auto 7300 /uL (1500-7000); Neutrophils Percent Auto 75.6 % (50-75); Platelet Count 281 X10^3/uL (150-400); Red Blood Cell Count 3.53 X10^6/uL (4.0-5.2); Red Cell Distribution Width 17.8 % (11.6-14.8); White Blood Cell Count 9.7 X10^3/uL (4.5-11.0)
[2021-07-30 16:47] LABS: Alanine Aminotransferase 13 IU/L (<35); Albumin 3.7 g/dL (3.5-5.0); Albumin Globulin Ratio 1.2 (1.0-2.8); Alkaline Phosphatase 73 U/L (38-126); Aspartate Aminotransferase 22 IU/L (14-36); BUN Creatinine Ratio 18.5 (6-22); Bilirubin Total 0.4 mg/dL (0.2-1.3); Blood Urea Nitrogen 43 mg/dL (7-17); Calcium 9.3 mg/dL (8.4-10.2); Carbon Dioxide 30 mmol/L (22-32); Chloride 102 mmol/L (98-107); Estimated Glomerular Filt Rate 19.9 mL/min (>60); Globulin 3.1 g/dL (1.7-4.1); Glucose 88 mg/dL (80-110); HEMOLYSIS < 15 (0-50); Potassium 4.6 mmol/L (3.4-5.1); Sodium 137 mmol/L (137-145); Total Protein 6.8 g/dL (6.3-8.2)
--- NOTE | 2021-07-30 17:03 | DI.CT.S_ITS ---
PROCEDURE: CT KIDNEY URETER BLADDER (KUB) INDICATIONS: HALINA TECHNIQUE: Axial sections were acquired from the lung bases to the pubic symphysis. Coronal and sagittal reformats were performed. For radiation dose reduction, the following was used: automated exposure control, adjustment of mA and/or kV according to patient size. COMPARISON: None. FINDINGS: Image quality: Image degraded by moderate patient motion artifact.. Lung bases: Bibasilar atelectasis. Heart: Heart size is normal. Prominent pericardial effusion measuring approximately 1.9 cm in thickness anteriorly. This measures simple fluid attenuation. 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 Left Kidney: A few left renal stones are present. Largest measures approximately 6 mm in size. There is a 1.5 cm cortical hypodensity in the left kidney measuring fluid attenuation. This likely represents a simple renal cyst. Otherwise, no evidence for obstructive uropathy. Left ureter is normal in course and caliber. The distal most segment of the left ureter is not well visualized secondary to moderate beam hardening artifact of adjacent surgical hardware of left hip arthroplasty. Left Ureter: No hydroureter. No ureteral stones seen. Bladder: Normal wall thickness. No stones. ABDOMEN: Liver: Multiple scattered hepatic hypodensities which are incompletely characterized. These may represent hepatic cysts or hemangiomas. Metastatic disease not excluded. Gallbladder: Gallbladder appears partially decompressed but otherwise unremarkable. Biliary ducts: Unremarkable. Pancreas: No peripancreatic inflammation. There is a possible 7 mm hypodense lesion involving the pancreatic neck (image 31/series 6). Spleen: Unremarkable. Adrenal Glands: Right adrenal gland is not definitively visualized. Left adrenal gland is normal in noncontrast appearance. Stomach and Bowel: Moderate amount of fecal material seen throughout the colon. Normal appendix. Unremarkable non-contrast appearance of the small bowel without evidence for obstruction. Peritoneum: No abnormal intraperitoneal fluid. No free air. Ventral Wall: There is a fat-containing umbilical hernia without acute inflammation. Abdominal Nodes: No enlarged retroperitoneal or mesenteric lymph nodes. Vessels: Extensive atherosclerotic calcifications of the abdominal aorta. PELVIS: Pelvic Organs: Unremarkable. Pelvic Nodes: There is an enlarged right inguinal lymph node measuring 2.1 x 2.5 cm (image 73/series 6). Miscellaneous: No inguinal hernias are seen. Bones: Diffuse osteopenia. No acute compression fractures of the imaged spine. Advanced multilevel spondylosis of the thoracic and lumbosacral spine. Grade 1 anterolisthesis of L4 on L5 likely related to severe spondylitic changes. No pars defect. There is associated moderate spinal canal stenosis at L4-5. Age-indeterminate fracture of the left inferior pubic ramus. Status post left total hip arthroplasty which causes significant beam hardening artifact of the lower pelvis. IMPRESSION: 1. No acute abnormalities identified in the abdomen or pelvis. However lack of intravenous contrast and patient motion artifact limits evaluation. Incidental note of moderate-sized pericardial effusion measuring up to 1.9 cm in thickness. Limited visualization of the lower chest demonstrates no finding to suggest pulmonary edema. Recommend clinical correlation. 2. Possible 7 mm hypodense lesion in the pancreatic neck which may represent a cyst or possible neoplasm. Further evaluation with contrast enhanced CT or MRI should be considered. 3. Multiple scattered hepatic hypodensities which are likely cysts or hemangiomas. However, metastatic disease not excluded. Further evaluation with contrasted CT or MRI evaluation should also be considered. 4. A single enlarged right inguinal lymph node measuring 2.5 cm in maximum dimension. Consider further characterization with nonemergent ultrasound. If suspicious, this may be amenable for ultrasound-guided biopsy. 5. Extensive atherosclerotic vascular disease. 6. Nonvisualization of the right adrenal gland and kidneys, presumably surgically absent. Recommend coronal formation with surgical history. 7. Moderate amount of fecal material seen throughout the colon. Normal appendix. 8. Diffuse osteopenia. 9. Age-indeterminate left inferior pubic ramus fracture. 10. Moderate multilevel spondylosis of the imaged spine with grade 1 anterolisthesis of L4 on L5 likely related to severe spondylitic changes at this level. There is resulting moderate spinal canal stenosis at this level. 11. Multiple left renal stones measuring up to 6 mm in size. There is a prominent left renal pelvis. Otherwise, no evidence for obstructive uropathy. No ureteral stones visualized. Dictated by: Nicolas Ibarra M.D. on 07/30/2021 at 17:37 Approved by: Nicolas Ibarra M.D. on 07/30/2021 at 17:54
--- NOTE | 2021-07-30 18:11 | ED.RECABL ---
HPI - Recheck/Abnormal Lab/Rx General Chief Complaint: Recheck/Abnormal Lab/Rx Stated Complaint: Anemic/GI Bleed Time Seen by Provider: 07/30/21 17:02 Source: EMS Mode of arrival: EMS History of Present Illness HPI narrative: 86-year-old female former smoker with history of hypertension, hyperlipidemia, anemia, failure to thrive and recent visit for GI bleed requiring transfusion presents with a chief complaint of an episode of weakness and lightheadedness earlier while therapy. She is currently free of any symptoms and has no complaints, resting comfortably. She denies dizziness, weakness or lightheadedness. She denies any chest pain or shortness of breath. She denies any pain. Staff has been in touch with POA who do not want another transfusion should she be anemic and are on board with a basic evaluation with comfort as our goal. Related Data Previous Rx's Medication Instructions Recorded lisinopril 20 mg tablet 20 mg PO QAM #90 tab 03/06/16 amlodipine 5 mg tablet (Norvasc) 5 mg PO QDAY #90 tab 03/07/16 levothyroxine 88 mcg tablet 88 mcg PO QAM #90 tab 11/27/16 spironolactone 25 mg tablet 25 mg PO QAM #30 tab 01/07/17 atorvastatin 20 mg tablet (Lipitor) 20 mg PO HS #90 tab 12/20/20 clopidogrel 75 mg tablet 75 mg PO DAILY #30 tab 04/25/21 sertraline 50 mg tablet 75 mg PO QDAY #90 tab 05/19/21 carvedilol 6.25 mg tablet (Coreg) 6.25 mg PO BID #120 tab 06/21/21 Allergies Allergy/AdvReac Type Severity Reaction Status Date / Time No Known Drug Allergies Allergy Verified 07/30/21 16:11 Review of Systems Review of Systems Narrative: GENERAL: Denies chills, fatigue, malaise, fever, sweats. HEENT: Denies sinus pain, ear pain, sore throat, difficulty swallowing, dizziness. RESPIRATORY: Denies dyspnea, cough, wheezing, hemoptysis, sputum. CARDIOVASCULAR: Denies chest pain, palpitations, orthopnea, edema, GASTROINTESTINAL: Denies nausea, vomiting, abdominal pain, diarrhea, constipation, melena. : Denies dysuria, frequency, incontinence, hematuria, urinary retention. MUSCULOSKELETAL: denies weakness, joint pain, or bony pain SKIN: Denies rash, skin lesions, or other NEUROLOGIC: Denies weakness, headache, numbness, change in speech, confusion, seizures, incoordination. PSYCHIATRIC: No concerning psychosocial issues. 12 point review of systems is negative except for those stated above Patient History Medical History Anemia Essential hypertension (11/21/15) Failure to thrive Hx of completed stroke Ischemic dilated cardiomyopathy Social History Smoking Status: Former smoker Smoking Status: Former smoker Substance Use Type: does not use Exam Narrative Exam Narrative: GENERAL: [86] year old patient appears stated age. Well-developed patient, in mild distress. HEAD: Atraumatic. Normocephalic. EYES: Pupils equal round and reactive. Extraocular motions intact. No scleral icterus. No injection or drainage. ENT: Dry mucous membranes. Nose without bleeding, purulent drainage. Throat without erythema, tonsillar hypertrophy or exudate. Airway patent. NECK: Trachea midline. Non tender CARDIOVASCULAR: Regular rate and rhythm without murmurs, gallops, or rubs. RESPIRATORY: Clear to auscultation. Breath sounds equal bilaterally. No wheezes, rales, or rhonchi. GASTROINTESTINAL: Abdomen soft, non-tender, nondistended. EXTREMITIES: No edema or joint tenderness. BACK: Nontender without deformity or crepitance. No flank tenderness. NEURO: AOx3. SKIN: Poor skin turgor. No rash or erythema of visible areas Initial Vital Signs Initial Vital Signs: Vital Signs Temperature 98.5 F 07/30/21 16:09 Pulse Rate 66 07/30/21 16:09 Respiratory Rate 12 07/30/21 16:09 Blood Pressure 145/69 H 07/30/21 16:09 Pulse Oximetry 96 07/30/21 16:09 Course Orders Ordered: ED Orders 07/30/21 16:04 EKG-12 Lead Stat 07/30/21 16:11 Complete Blood Count AUTO DIFF Stat Comprehensive Metabolic Panel Stat 07/30/21 17:03 CT kidney ureter bladder (KUB) Stat Discontinued Medications Sodium Chloride (Normal Saline 0.9%) 500 mls @ 1,000 mls/hr IV BOLUS ONE Stop: 02/27/22 18:43 Last Infusion: 07/30/21 19:24 Dose: 0 mls/hr Documented by: Admin: 07/30/21 18:30 Dose: 1,000 mls/hr Documented by: RY Vital Signs Vital signs: Vital Signs - 8 hr 07/30/21 16:16 07/30/21 16:30 07/30/21 16:57 Pulse Rate 65 65 67 Respiratory Rate Blood Pressure 141/62 H Pulse Oximetry 96 94 95 07/30/21 17:00 07/30/21 17:05 07/30/21 20:36 Pulse Rate 67 65 Respiratory Rate 16 Blood Pressure 136/59 L 165/70 H Pulse Oximetry 95 MDM - Recheck/Abnormal Lab/Rx Lab Data Result diagrams: 07/30/21 16:11 07/30/21 16:11 Labs: Lab Results 07/30/21 07/30/21 Range/Units 16:11 16:11 WBC 9.7 (4.5-11.0) X10^3/uL RBC 3.53 L (4.0-5.2) X10^6/uL Hgb 10.3 L (12.0-16.0) g/dL Hct 31.5 L (36-46) % MCV 89.2 (80-100) fL MCH 29.3 (26-34) PG MCHC 32.8 (30-36) % RDW 17.8 H (11.6-14.8) % Plt Count 281 (150-400) X10^3/uL Neut % (Auto) 75.6 H (50-75) % Lymph % (Auto) 6.0 L (25-40) % Rankin % (Auto) 14.4 H (3-14) % Eos % (Auto) 3.2 (2-4) % Baso % (Auto) 0.8 (0-2) % Neut # (Auto) 7300 H (6215-9999) /uL Lymph # (Auto) 600 L (4077-7566) /uL Rankin # (Auto) 1400 H (0-900) /uL Eos # (Auto) 300 (0-450) /uL Baso # (Auto) 100 (0-100) /uL Sodium 137 (137-145) mmol/L Potassium 4.6 (3.4-5.1) mmol/L Chloride 102 (98-107) mmol/L Carbon Dioxide 30 (22-32) mmol/L BUN 43 H (7-17) mg/dL Creatinine 2.32 H (0.52-1.04) mg/dL Estimated GFR 19.9 L (>60) mL/min BUN/Creatinine Ratio 18.5 (6-22) Glucose 88 (80-110) mg/dL Calcium 9.3 (8.4-10.2) mg/dL Total Bilirubin 0.4 (0.2-1.3) mg/dL AST 22 (14-36) IU/L ALT 13 (<35) IU/L Alkaline Phosphatase 73 (38-126) U/L Total Protein 6.8 (6.3-8.2) g/dL Albumin 3.7 (3.5-5.0) g/dL Globulin 3.1 (1.7-4.1) g/dL Albumin/Globulin Ratio 1.2 (1.0-2.8) Imaging Data CT scan - abdomen/pelvis: Radiologist's Impression: Launch?[place] [address] CT Scan Report Signed Patient: Trice Narayan MR#: [id number] : 1935 Acct:[id number] Age/Sex: 86 / F Date of Service: 07/30/21 Loc: ED Accession Number: [id number] ?? Procedure: CT kidney ureter bladder (KUB) Ordering Provider: Liz Goodson D.O. PROCEDURE:? CT KIDNEY URETER BLADDER (KUB) ? INDICATIONS:? HALINA ? TECHNIQUE:? Axial sections were acquired from the lung bases to the pubic symphysis.? Coronal and sagittal reformats were performed.? For radiation dose reduction, the following was used: ?automated exposure control, adjustment of mA and/or kV according to patient size.? ? COMPARISON:? None. ? FINDINGS:? Image quality:? Image degraded by moderate patient motion artifact..? ? Lung bases:? Bibasilar atelectasis. Heart:? Heart size is normal.? Prominent pericardial effusion measuring approximately 1.9 cm in thickness anteriorly.? This measures simple fluid attenuation. ? 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 ? Left Kidney:? A few left renal stones are present.? Largest measures approximately 6 mm in size.? There is a 1.5 cm cortical hypodensity in the left kidney measuring fluid attenuation.? This likely represents a simple renal cyst.? Otherwise, no evidence for obstructive uropathy.? Left ureter is normal in course and caliber.? The distal most segment of the left ureter is not well visualized secondary to moderate beam hardening artifact of adjacent surgical hardware of left hip arthroplasty.? Left Ureter:? No hydroureter.? No ureteral stones seen. ? Bladder:? Normal wall thickness. No stones. ? ? ? ABDOMEN: Liver:? Multiple scattered hepatic hypodensities which are incompletely characterized.? These may represent hepatic cysts or hemangiomas.? Metastatic disease not excluded.? ? Gallbladder:? Gallbladder appears partially decompressed but otherwise unremarkable.? ? Biliary ducts:? Unremarkable.? ? Pancreas:? No peripancreatic inflammation.? There is a possible 7 mm hypodense lesion involving the pancreatic neck (image 31/series 6). Spleen:? Unremarkable.? ? Adrenal Glands:? Right adrenal gland is not definitively visualized.? Left adrenal gland is normal in noncontrast appearance.? ? ? Stomach and Bowel:? Moderate amount of fecal material seen throughout the colon.? Normal appendix.? Unremarkable non-contrast appearance of the small bowel without evidence for obstruction. ? Peritoneum:? No abnormal intraperitoneal fluid.? No free air.? ? Ventral Wall: ? There is a fat-containing umbilical hernia without acute inflammation. Abdominal Nodes:? No enlarged retroperitoneal or mesenteric lymph nodes.? Vessels:? Extensive atherosclerotic calcifications of the abdominal aorta. ? PELVIS: Pelvic Organs:? Unremarkable.? ? Pelvic Nodes:? There is an enlarged right inguinal lymph node measuring 2.1 x 2.5 cm (image 73/series 6). Miscellaneous: No inguinal hernias are seen. ? ? ? Bones:? Diffuse osteopenia.? No acute compression fractures of the imaged spine.? Advanced multilevel spondylosis of the thoracic and lumbosacral spine.? Grade 1 anterolisthesis of L4 on L5 likely related to severe spondylitic changes.? No pars defect.? There is associated moderate spinal canal stenosis at L4-5.? Age-indeterminate fracture of the left inferior pubic ramus.? Status post left total hip arthroplasty which causes significant beam hardening artifact of the lower pelvis. ? IMPRESSION:? ? 1. No acute abnormalities identified in the abdomen or pelvis.? However lack of intravenous contrast and patient motion artifact limits evaluation.? Incidental note of moderate-sized pericardial effusion measuring up to 1.9 cm in thickness.? Limited visualization of the lower chest demonstrates no finding to suggest pulmonary edema.? Recommend clinical correlation. ? 2. Possible 7 mm hypodense lesion in the pancreatic neck which may represent a cyst or possible neoplasm.? Further evaluation with contrast enhanced CT or MRI should be considered. ? 3. Multiple scattered hepatic hypodensities which are likely cysts or hemangiomas.? However, metastatic disease not excluded.? Further evaluation with contrasted CT or MRI evaluation should also be considered. ? 4. A single enlarged right inguinal lymph node measuring 2.5 cm in maximum dimension.? Consider further characterization with nonemergent ultrasound.? If suspicious, this may be amenable for ultrasound-guided biopsy. ? 5. Extensive atherosclerotic vascular disease. ? 6. Nonvisualization of the right adrenal gland and kidneys, presumably surgically absent. ?Recommend coronal formation with surgical history. ? 7. Moderate amount of fecal material seen throughout the colon.? Normal appendix. ? 8.? Diffuse osteopenia.? ? 9. Age-indeterminate left inferior pubic ramus fracture. ? 10. Moderate multilevel spondylosis of the imaged spine with grade 1 anterolisthesis of L4 on L5 likely related to severe spondylitic changes at this level.? There is resulting moderate spinal canal stenosis at this level.? ? 11. Multiple left renal stones measuring up to 6 mm in size.? There is a prominent left renal pelvis.? Otherwise, no evidence for obstructive uropathy.? No ureteral stones visualized.? ? ? Dictated by: Nicolas Ibarra M.D. on 07/30/2021 at 17:37 ? ? Approved by: Nicolas Ibarra M.D. on 07/30/2021 at 17:54 ? MDM Narrative Medical decision making narrative: 86-year-old female DNR is at her baseline, pleasantly confused with no complaints. She does appear slightly dehydrated and has had a bump in her creatinine on labs. She is given gentle hydration, continues to be asymptomatic. No indication of any significant findings or need for intervention. POA has been contacted in is comfortable with this plan. Discharge Plan Departure Patient Disposition: Home Clinical Impression: Acute dehydration Instructions: DI for Dehydration -- Adult Prescriptions: No Action lisinopril 20 MG tablet 20 mg PO QAM Qty: 90 3RF amlodipine [Norvasc] 5 MG tablet 5 mg PO QDAY Qty: 90 3RF levothyroxine 88 MCG tablet 88 mcg PO QAM Qty: 90 3RF spironolactone 25 MG tablet 25 mg PO QAM Qty: 30 2RF atorvastatin [Lipitor] 20 mg tablet 20 mg PO HS Qty: 90 0RF clopidogrel 75 mg tablet 75 mg PO DAILY Qty: 30 2RF sertraline 50 mg tablet 75 mg PO QDAY Qty: 90 1RF carvedilol [Coreg] 6.25 mg tablet 6.25 mg PO BID Qty: 120 1RF Referrals: Nickolas Rosado, [Primary Care Provider] -
[2021-07-30] MEDS: SODIUM CHLORIDE 0.9% 500 ML 1000 ML IV (18:30)
== END 2021-07-30 20:46 | disposition home or self-care (01) ==
PROVIDERS: Emergency Medicine; Emergency Provider Emergency Medicine; Family Provider Family Medicine; PCP Family Medicine
DX: E86.0 Dehydration (principal); Z87.891 Personal history of nicotine dependence; Z66 Do not resuscitate
CPT/HCPCS: 36415; 74176; 80053; 85025; 93005; 96360; 99284